=== PATIENT | female | born 1980 | race Caucasian/White ===

== ENCOUNTER 2022-05-01 21:10 | Emergency (ER) | payer SELFPAY ==
[~2022-05-01] VITALS: Ht 160 cm; Wt 107.0 kg
[2022-05-02] MEDS ORDERED: ENALAPRIL 2.5MG TABLET PO ONE (09:45)
[2022-05-02] MEDS ORDERED: IBUPROFEN 600MG TABLET PO ONE (09:45)
[2022-05-02 10:09] LABS: CLARITY URINE TURBID (CLEAR); COLOR URINE ORANGE (YELLOW); KETONES URINE NEGATIVE (NEGATIVE); LEUKOCYTE ESTERASE URINE 2+ (NEGATIVE); NITRITE URINE NEGATIVE (NEGATIVE); OCCULT BLOOD URINE 3+ (NEGATIVE); PH URINE 5.5 (4.5-8.0); PROTEIN URINE 3+ (NEGATIVE); SPECIFIC GRAVITY URINE 1.017 (1.005-1.030); UROBILINOGEN URINE 0.2 E.U./dL (0.2-1.0)
[2022-05-02] MEDS ORDERED: IBUP-2029 MT (10:53)
[2022-05-02] MEDS ORDERED: CEPH500C2 MT (10:53)
[2022-05-02 11:03] VITALS: BP 148/93
== END 2022-05-02 11:04 | disposition home or self-care (01) ==
LOC: ER 21:10
DX: N30.90 Cystitis, unspecified without hematuria (principal); R10.30 Lower abdominal pain, unspecified; J45.909 Unspecified asthma, uncomplicated; I10 Essential (primary) hypertension; Z98.890 Other specified postprocedural states
CPT/HCPCS: 81003; 81025; 87077; 99283